=== PATIENT | female | born 1990 | race African-American/Black ===

== ENCOUNTER 2016-05-30 07:25 | Day surgery (SDC) | payer MEDICARE ==
[~2016-05-30] VITALS: Ht 170.2 cm; Wt 62.7 kg
[~2016-05-30 07:25] MED LIST: ATARAX 25 MG TA25 MG PO; COREG25 MG PO; COUMADIN5 MG PO; COZAAR100 MG PO; GENTAMICIN PREM80 M1 IV; HYDROCODONE-APA1 TAB PO; KENALOG 0.025 %15 GM TP; LONITEN2.5 MG PO; MEGACE40 MG PO; NORCO 5/325 TAB1 TA1 PO; NORVASC10 MG PO; ORAPRED ODT10 MG/TAB PO; PHOSLO667 MG PO; PLAQUENIL200 MG PO; PROTONIX40 MG PO; SENSIPAR60 MG PO; VANCOMYCIN 1 GM/1 G1 IV; XANAX0.25 MG PO
[2016-05-30 07:59] LABS: BASOPHILS 0.3 % (0.0-2.0); EOSINOPHILS 25.5 % (0-7); HEMATOCRIT 37.5 % (36.0-48.0); HEMOGLOBIN 11.9 g/dL (12-16); IMMATURE GRANULOCYTES 0.5 % (0-5); MCH 32.6 pg (26.0-34.0); MCHC 31.7 g/dL (31.0-37.0); MCV 102.7 fL (80.0-100.0); MEAN PLATELET VOLUME 10.1 fL (7.4-10.4); MONOCYTES 10.2 % (2-11); NEUTROPHILS 45.5 % (40-80); PLATELET COUNT 133 10x3/uL (130-400); RBC 3.65 10x6/uL (4.00-5.40); RDW 15.8 % (11.5-14.5)
[2016-05-30 08:10] LABS: INR 1.21 (0.85-1.17); PROTIME 15.2 SECONDS (11.6-15.0)
[2016-05-30] MEDS ORDERED: LONITEN10 MG PO (08:10)
[2016-05-30 08:11] LABS: ANION GAP 13.2 mmol/L (8-16); CALCIUM 9.6 mg/dL (8.5-10.1); CARBON DIOXIDE 29.9 mmol/L (21.0-32.0); CREATININE - SERUM 7.4 mg/dL (0.6-1.3); POTASSIUM - SERUM 4.1 mmol/L (3.5-5.1)
[2016-05-30] MEDS ORDERED: LONITEN2.5 MG PO (08:11)
[2016-05-30] MEDS ORDERED: DILT-XR240 MG PO (08:13)
[2016-05-30 08:17] VITALS: BP 125/75; Ht 170.2 cm; Wt 62.7 kg
[2016-05-30 08:21] LABS: HCG URINE NEGATIVE (NEGATIVE)
[2016-05-30] MEDS ORDERED: MUPIROCIN22 GM TOPICAL (11:47)
--- NOTE | 2016-05-30 13:30 | NUR ---
IV VANCOMYCIN HAS COMPLETED. IV REMOVED INTACT. DISCHARGE INSTRUCTIONS AND RX GIVEN, VOICED UNDERSTANDING.
--- NOTE | 2016-05-30 14:00 | NUR ---
IS NOW DRESSED AND READY FOR WHEELCHAIR. DISCHARGED HOME VIA .
--- NOTE | 2016-06-03 09:48 | OP ---
PATIENT NAME: IRINEO MOORE MEDICAL RECORD: [id number] :88 LOCATION:D.JALIL ADMISSION DATE: SURGEON: ARNOLDO SHARMA MD DATE OF OPERATION: 05/30/2016 REFERRING PHYSICIAN: Dr. Oh Gutierrez of [place]. ATTENDING PHYSICIAN IN THE HOSPITAL TODAY: Dr. Kimball. PREOPERATIVE DIAGNOSES: Dialysis access complication and with high pressures and drawing clots and post-decannulation bleeding from left arm hybrid HeRO AV fistula and right axillary lymphadenitis or abscess OPERATION PERFORMED: Left arm fistulogram from the arterial anastomosis to the right atrium and additionally incision and drainage of right axillary abscess. SURGEON: Arnoldo Sharma MD ANESTHESIA: General with LMA per ALCIDES and Dr. Montiel. PREOPERATIVE NOTE: Ms. 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 She has been dialyzing for some time with a HeRO hybrid type access on the left. The HeRO was put in to preserve the well established left brachiocephalic arteriovenous fistula and has worked fine, but recently she has been having trouble with clots, elevated pressure is difficult to access, etc. 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 She is to have a fistulogram today and possible intervention. This morning, she indicated that for the past 2 days, she has had a tender lump in the right axilla, which on physical examination is not warm, it is about a centimeter and a half perhaps in diameter attached to the skin and is most likely an axillary abscess or lymphadenitis, to be incised and drained today while she is under anesthesia. Under general anesthesia administered with an LMA, the patient was prepped and draped in sterile manner. I accessed her fistula near the arterial anastomosis. I used micropuncture technique and then performed the contrast injections through the micropuncture 4-Upper Sorbian catheter. The contrast injection with runoff occlusion demonstrated the arterial anastomosis to be wide open. There does appear to be some probably chronic clot in the vein near the arterial anastomosis, but it is not causing any problem with flow. Additional digital subtraction runs were then used to image the entire fistula. There is a rather severe aneurysmal deterioration of the cephalic vein with areas of calcification and then there was good runoff from the junction with the HeRO outflow device to the right atrium. It was my opinion that the really probable serviceable lifetime of this cephalic vein fistula is at an end and the vein segment needs to be replaced within Acuseal graft to her HeRO outflow, using the old arterial anastomosis for the inflow source. The 4-Upper Sorbian catheter was removed and 4-0 Prolene [id number] suture placed to provide hemostasis and after a period of direct pressure, the puncture site was dressed with Avitene Ultrafoam, Tegaderm, and Cavilon skin prep. I turned my attention into the right axilla. I made a 1 cm incision into the indurated area and I was actually only able to OPERATIVE REPORT [id number] IRINEO MOORE drain a small amount of purulence and sebaceous material. I did culture the wound for aerobes and anaerobes and then held pressure for a period of time, there being persistent venous bleeding, I believe due to her upper torso venous hypertension. I packed the wound with iodoform gauze and continue to hold pressure and then infiltrated the tissues surrounding the wound with 0.25% Marcaine with epinephrine. Bleeding continued, although it did improve after the epinephrine injection. I removed the iodoform gauze then packed the wound with Fibrillar and then eventually placed 2 simple 3-0 Vicryl sutures to close the wound over the Fibrillar and provide additional pressure and this did achieve hemostasis. The wound was subsequently dressed with sterile gauze and Medipore tape. During the last portion of the operation, the patient's LMA had become malpositioned or displaced and her oxygen saturation dropped and she became hypotensive, which when this was recognized and her LMA repositioned and she was ventilated with 100% oxygen and her anesthetic discontinued. Her blood pressure did return to normal levels as did her O2 saturation. The patient was successfully awakened and taken to the recovery room. I will order a chest x-ray will be done postop because of this episode of O2 desaturation. If the patient is stable and otherwise feels well in the outpatient department, I will plan to let her go home today and return to see me probably in the next week or two, hopefully when she will be scheduled for a major graft revision. I think that she should be kept on antibiotics for the right axillary abscess for about a week. I have given her 500 mg of vancomycin IV today here and we will ask the dialysis continue her on vancomycin to be administered at her next 3 dialysis sessions. We will schedule home health to see her starting this coming Thursday, both the sutures and the wound packing can be removed and the wound rinsed and irrigated with hydrogen peroxide and then a sterile dry dressing applied over it, that should be done then daily, with also then application of mupirocin ointment over the wound under the dry dressing. Home health should be able to teach the patient to do this for herself and I would not expect her to require any home health visits for much longer than a couple of weeks. Blood loss was probably 25 cc or less, none was replaced. All sponges, instruments and needles were accounted for. No drain was used and other than the cultures, no surgical specimen was submitted for histopathology. TRANSINT:[id number] Voice Confirmation ID: [id number] DOCUMENT ID: [id number] ARNOLDO SHARMA MD at 0948 CC: CJ KIMBALL MD and OH GUTIERREZ III MD [id number] DICTATION DATE: 05/30/16 1158 [facility] U[facility]ERS: 05/30/16 1255 [facility] 05/30/16 [id number] [place] [address]
== END 2016-05-30 14:00 | disposition home or self-care (01) ==
LOC: D.OPS 07:25
PROVIDERS: Internal Medicine Nephrology
DX: T82.590A Other mechanical complication of surgically created arteriovenous fistula, initial encounter (principal); I12.0 Hypertensive chronic kidney disease with stage 5 chronic kidney disease or end stage renal disease; N18.6 End stage renal disease; Z99.2 Dependence on renal dialysis; I95.81 Postprocedural hypotension; I86.8 Varicose veins of other specified sites; L02.411 Cutaneous abscess of right axilla; M32.9 Systemic lupus erythematosus, unspecified

== ENCOUNTER 2016-09-30 07:57 | Inpatient (IN) | payer MEDICARE ==
[~2016-09-30] VITALS: Ht 170.2 cm; Wt 64.8 kg
[~2016-09-30 07:57] MED LIST changes: +DILT-XR240 MG PO; +LONITEN10 MG PO; +MUPIROCIN22 GM TOPICAL
[2016-09-30 08:54] LABS: HEMATOCRIT 37.5 % (36.0-48.0); MCH 32.5 pg (26.0-34.0); MCV 101.6 fL (80.0-100.0); PLATELET COUNT 128 10x3/uL (130-400); RBC 3.69 10x6/uL (4.00-5.40); WBC 2.6 10x3/uL (4.8-10.8)
[2016-09-30 09:02] LABS: ANION GAP 10.7 mmol/L (8-16); CALCIUM 8.6 mg/dL (8.5-10.1); CARBON DIOXIDE 31.3 mmol/L (21.0-32.0); CREATININE - SERUM 6.7 mg/dL (0.6-1.3)
[2016-09-30 09:03] LABS: APTT 33.8 SECONDS (22.8-39.4); INR 1.22 (0.85-1.17); PROTIME 15.3 SECONDS (11.6-15.0)
[2016-09-30] MEDS ORDERED: DIPROLENE 0.05%60 M1 TOPICAL (09:05)
[2016-09-30 09:13] LABS: HCG SERUM NEGATIVE (NEGATIVE)
[2016-09-30 09:37] VITALS: BMI 21.4
[2016-09-30 09:41] LABS: BASOPHILS 1 % (0-2); EOSINOPHILS 8 % (0-7); LYMPHOCYTES 26 % (15-50); MONOCYTES 21 % (2-11); NEUTROPHILS 44 % (40-80); PLATELET ESTIMATE NORMAL
--- NOTE | 2016-09-30 10:16 | NUR ---
1015 [facility] APN/NEPHROLOGY BEEPED TO REVIEW PREOP LAB VALUES. Carolyn GARNER R.N.
--- NOTE | 2016-09-30 10:24 | NUR ---
1024 [facility] APN [facility]PHROLOG[facility] CALLED. ABNORMAL CHEST XRAY REPORT, WBC-2.6, PLATELET 128, LYMPHOCYE ABS# 0.63, NEUTROPHIL ABS# 1.22 GIVEN IN ADDITION TO HGB, K+,PLATELETS, PTT, & INR LAB RESULTS. ORDER RECEIVED FOR LAB VALUES CLEAR PER NEPHROLOGY FOR SURGERY TODAY. STATES WILL NOTIFY DIALYSIS @ [facility] R/T ABNORMAL CXR, WBC, & PLATELET. Carolyn GARNER R.N.
[2016-09-30 17:21] VITALS: BP 116/72
--- NOTE | 2016-09-30 17:23 | NUR ---
ARRIVE TO ROOM VIA BED FROM OR. LT ARM HEROGRAFT DRESSING CLEAN DRY INTACT. FREE FROM BLEEDING. BRUIT AND THRILL PRESENT. FAMILY AT BEDSIDE. BP-116/72, T-97.7, O2-94% 3L NC. LT ARM ELEVATED ON PILLOW. SEDATED. AROUSES EASILY TO VOICE. CONTINUE PLAN OF CARE. BED LOCKED AND LOW. CALL LIGHT IN REACH. TWO SIDERAILS UP. SCDs ON.
[2016-09-30 17:37] VITALS: BP 116/72; Ht 170.2 cm; Wt 64.8 kg
--- NOTE | 2016-09-30 20:44 | NUR ---
PT SITTING ON SIDE OF BED. STATES THAT LEFT ARM IS HURTING BUT IT IS TOLERABLE. TOLD PT TO CALL IF PAIN GETS WORSE. PT DENIES ANY OTHER NEEDS. BEDLOW AND CALLLIGHT WITHIN REACH. WILL CONTINUE TO MONITOR
[2016-09-30 21:02] VITALS: BP 122/81
--- NOTE | 2016-09-30 21:51 | NUR ---
PT C/O 11/16 PAIN IN LEFT SHOULDER FROM PROCEDURE TODAY. ULTRAM PO AND BUPRENORPHINE IM GIVEN. ICE PACK PROVIDED. . WILL CONTINUE TO MONITOR PAIN. PT DENIES ANY OTHER NEEDS. NO S/S OF DISTRESS.
[2016-10-01 01:00] VITALS: BP 124/78
[2016-10-01 04:21] VITALS: BP 123/76
--- NOTE | 2016-10-01 06:30 | NUR ---
PT RESTING IN BED. RESPIRATIONS EVEN AND UNLABORED. NO COMPLAINTS AT THIS TIME.NO S/S OF DISTRESS. WILL CONTINUE TO MONITOR
[2016-10-01 08:00] VITALS: BP 130/83
--- NOTE | 2016-10-01 08:14 | NUR ---
AM ROUNDS - PT IS AWAKE IN BED. NO YELLOW BAND ON. PT IS ON 3L O2 VIA NC. IV TO RIGHT FA, SL. PT IS A LEFT ARM RESERVE. BED AT LOWEST POSITION, CALL BERTRAND IN USE/REACH, SIDE RAILS UP X2. WILL CONTINUE TO MONITOR
[2016-10-01 12:43] VITALS: BP 138/83
[2016-10-01 16:00] VITALS: BP 109/70
--- NOTE | 2016-10-01 19:21 | NUR ---
RECEIVED REPORT, WILL ASSUME CARE OF PT, PT WATCHING TV, DENIES ANY NEEDS AT THIS TIME, BED IS LOW, SRX2, CALL LIGHT IN REACH, WILL CONTINUE PLAN OF CARE
[2016-10-01 20:00] VITALS: BP 148/87
--- NOTE | 2016-10-02 02:12 | NUR ---
ASSESSMENT COMPLETE, SEE FLOW SHEET, PT IS SLEEPING, BED IS LOW, SRX2, CALL LIGHT IN REACH, WILL CONTINUE PLAN OF CARE
[2016-10-02 04:20] VITALS: BP 126/80
[2016-10-02 06:04] LABS: BASOPHILS 0 % (0-2); EOSINOPHILS 0.8 % (0-7); HEMOGLOBIN 10.9 g/dL (12-16); IMMATURE GRANULOCYTES 0.8 % (0-5); LYMPHOCYTES 25.4 % (15-50); MCH 33.4 pg (26.0-34.0); MCHC 34.1 g/dL (31.0-37.0); MEAN PLATELET VOLUME 10.9 fL (7.4-10.4); MONOCYTES 10.7 % (2-11); NEUTROPHILS 62.3 % (40-80); RBC 3.26 10x6/uL (4.00-5.40); RDW 14.6 % (11.5-14.5)
[2016-10-02 06:21] LABS: MCV 98.2 fL (80.0-100.0); PLATELET COUNT 168 10x3/uL (130-400); WBC 4.8 10x3/uL (4.8-10.8)
[2016-10-02 06:22] LABS: ANION GAP 16.5 mmol/L (8-16); CARBON DIOXIDE 24.7 mmol/L (21.0-32.0)
[2016-10-02 06:30] LABS: CREATININE - SERUM 11.1 mg/dL (0.6-1.3); POTASSIUM - SERUM 5.2 mmol/L (3.5-5.1)
--- NOTE | 2016-10-02 07:45 | NUR ---
PRN NORCO GIVEN FOR LEFT SHOULDER PAIN PER PATIENT REQUEST
[2016-10-02 08:00] VITALS: BP 129/82
--- NOTE | 2016-10-02 08:00 | NUR ---
PATIENT ALERT/OREINT X4. SCD'S ON AT THIS TIME. CALL LIGHT WITHIN REACH. VOICES NO NEEDS AT THIS TIME. RESERVED LEFT ARM DUE TO AV FISTULA
--- NOTE | 2016-10-02 09:42 | NUR ---
PATIENT TAKEN DOWN TO DIALYSIS CLINIC FOR TREATMENT
--- NOTE | 2016-10-02 12:47 | NUR ---
IN DIALYSIS AT PRESENT.
--- NOTE | 2016-10-02 13:47 | NUR ---
PATIENT REMAINS IN DIALYSIS CLINIC. DR. RIVERA HAS WRITTEN DISCHARGE INSTRUCTIONS FOR THIS PATIENT.
--- NOTE | 2016-10-02 14:33 | NUR ---
PATIENT BACK FROM DIALYSIS CLINIC. REPORT CALLED TO THIS NURSE. B/P HAS BEEN RUNNING LOW. B/P 93/50. WILL CONTINUE TO MONITOR
--- NOTE | 2016-10-02 15:24 | NUR ---
B/P 109/47
[2016-10-02 15:38] VITALS: BP 109/47
--- NOTE | 2016-10-02 16:48 | NUR ---
Patient Name: IRINEO MALIN Admission Status: Elective Accout number: [id number] Admission Date: 09-30-2016 : 1990 Admission Diagnosis:OTH COMPLICATION OF VASCULAR PROSTH MIR/MIRIAM, [place] Attending: LUPE Current LOS: 2 Anticipated DC Date: 10-02-2016 Planned Disposition: Home Primary Insurance: MEDICARE A & B Discharge Planning Comments: * Is the patient Alert and Oriented? Yes 0 * How many steps to enter\exit or inside your home? 3 0 * PCP DR. CORREA, [facility] * Pharmacy [facility] 0 * Preadmission Environment Home with Family 0 * ADLs Independent 0 * Equipment None 0 * Other Equipment NO MEDICAL EQUIPMENT PROVIDER PREFERENCE 0 * List name and contact numbers for known caregivers / representatives who currently or will assist patient after discharge: MARISOL DEWEY, MOTHER, 0 * Community resources currently utilized Other 0 * Please name any agencies selected above. OUTPATIENT DIALYSIS, [facility], T/T/, 0800; PT DRIVES SELF 0 * Additional services required to return to the preadmission environment? No 0 * Can the patient safely return to the preadmission environment? Yes 0 * Has this patient been hospitalized within the prior 30 days at any hospital? No 0 CM MET WITH PT IN ROOM TO DISCUSS DISCHARGE PLANNING AND NEEDS. PT REPORTS LIVING AT HOME INDEPENDENTLY WITH HER PARENTS. PT HAS NO MEDICAL EQUIPMENT AND NO OUTSIDE SERVICES ASSISTING IN THE HOME. PT HAS OUTPATIENT DIALYSIS AND DRIVES HERSELF TO AND FROM TREATMENTS. CM DISCUSSED AVAILABILITY OF HOME HEALTH, REHAB SERVICES AND MEDICAL EQUIPMENT. PT DENIES DISCHARGE NEEDS, REPORTS HER FATHER IS ON THE WAY AND WILL PICK HER UP FOR DISCHARGE HOME TODAY. IMPORTANT MESSAGE FROM MEDICARE PROVIDED AND EXPLAINED. Parole Director: Manuel Urena
--- NOTE | 2016-10-02 17:27 | NUR ---
B/P 106/62. PATIENT IS WAITING FOR HER FATHER TO PICK HER UP. DISCHARGE PAPER WORK IS DONE.
--- NOTE | 2016-10-02 17:43 | OP ---
PATIENT NAME: SUSU MOORE MEDICAL RECORD: [id number] :[birth year] LOCATION:D.M2 D.2138 ADMISSION DATE:09/30/16 SURGEON: ARNOLDO SHARMA MD DATE OF OPERATION: 09/30/2016 PATIENT TYPE: Inpatient. PREOPERATIVE DIAGNOSIS: Aneurysmal and malfunctioning left arm brachiocephalic AV fistula with HeRO outflow to the right atrium. POSTOPERATIVE DIAGNOSIS: Aneurysmal and malfunctioning left arm brachiocephalic AV fistula with HeRO outflow to the right atrium. OPERATION PERFORMED: Fistulogram followed by open revision of AV fistula with implantation of a new 6 mm Acuseal graft with a new direct anastomosis to the brachial artery above the antecubital space and excision of portion of the aneurysmal AV fistula from the antecubital space. SURGEON: Arnoldo Sharma M.D. REFERRING PHYSICIAN: Dr. Gutierrez. PREOPERATIVE NOTE: Susu Moore is a 26-year-old female with lupus and lupus related kidney disease and end-stage renal disease. She is on chronic hemodialysis. She has had multiple catheters and multiple dialysis access failures and has multiple central vein stenoses. She has been dialyzing successfully now for a couple of years with a left upper extremity HeRO graft. Actually it is a hybrid, I converted her left brachiocephalic AV fistula to the HeRO outflow. Most recently about 2-3 months ago, I performed an intervention for thrombosis and found that her fistula was severely calcific and contained extensive debris and had areas of stenosis and it was my recommendation at that time that she be scheduled for an elective creation of a new fistula or conversion to an AV graft in the left arm. She did not return for followup after that case, but returns now referred from her doctors in [facility] with a poor dialysis efficiency and prolonged post-cannulation bleeding. I have talked with her preoperatively and she understands and is in agreement with my recommendation that she have a new AV graft implanted. I told her I will first do a fistulogram to see if there is any problem with the outflow. PROCEDURE: With patient under general anesthesia per INSURANCE LEGAL ASSISTANT in supine position, the left arm and chest and neck were prepped and draped in a sterile manner. I made an incision in the infraclavicular space and the deltopectoral groove and I exposed the HeRO outflow device and the junction with the PTFE and the anastomosis between the PTFE segment and the cephalic vein. These structures were freed up completely. I then accessed her fistula near the antecubital space using micropuncture technique and performed a fistulogram and demonstrated severely calcific vein in the entire arm. There was no evidence of obstructed venous outflow. The Angiocath was removed and a 4-0 Prolene suture used for hemostasis at puncture site. I then made a transverse incision across the antecubital space and exposed the cephalic vein fistula at that level. The vein was highly calcific and very dilated and I dissected it fairly extensively down to the brachial artery anastomosis. Just distal to that, I closed the vein with a vascular stapling device and resected some of the structure, which was subsequently sent to pathology. It was quite remarkable in the extent of calcification and the intraluminal debris, which was almost identical or OPERATIVE REPORT [id number] SUSU MOORE ETOY certainly very similar in appearance to a severely atherosclerotic diseased artery. The patient was heparinized with 5000 units of heparin, which after 1 hour was supplemented with an additional 2000 units of heparin. I chose a 6-mm diameter Acuseal graft and made a single counter incision about mid humeral level and lateral to the cephalic vein fistula. The graft was placed in a subcutaneous tunnel, very close to the skin in the areas it will be accessed. I exposed the brachial artery above the antecubital space and dissected the artery and controlled it with Silastic loops and performed an end-to-side graft to artery anastomosis with running 6-0 Prolene. That anastomosis was sealed with BioGlue and after a 2 minute observation, it was noted to be hemostatic with release of the occluding clamps and loops. The graft and arterial anastomosis were flushed with heparinized saline and the graft clamped. The graft pulled through the tunnels up into the deltopectoral groove, was shortened and then attached to a HeRO revision clamp, which is manufactured specifically for this use. I clamped the HeRO outflow device as far medially as possible and then divided it and then joined the new PTFE graft with the revision connector to the HeRO outflow and released the occluding clamps and excellent flow was immediately established. I then fully mobilized and resected the old HeRO outflow to graft to vein segment and ligated the vein there with 0 silk. The vein had been ligated distally in the arm also above the antecubital space with 0 silk. The wounds were irrigated with Ancef and gentamicin solution. Hemostasis obtained with the electrocautery and the patient given 20 mg of protamine in an effort at least partially reverse her heparinization. The wounds were infiltrated and irrigated with 0.25% Marcaine with epinephrine and then closed in layers with interrupted inverted 3-0 Vicryl and running intracuticular 4-0 Monocryl. The incisions were sealed with glue and dressed with Maxorb Ag, Tegaderm and Cavilon skin prep. She was then awakened and taken to the recovery room in stable condition. Blood loss was 100 cc or less, none was replaced. All sponges, instruments and needles were accounted for. No drain was used and the surgical specimen consisted of resected arterialized atherosclerotic looking fistula. PLAN: She needs to remain in the hospital, certainly at least overnight tonight at a minimum. She will need to have dialysis here tomorrow and demonstrate that her accesses is going to be reliably accessible and hopefully that she gets better, more efficient dialysis from it. We need to make sure that her pain control with oral medications is adequate and that she is able to return to nearly normal activities upon discharge. She will continue all of the same medications. She will be scheduled to return to see me in my office probably in about 2 weeks. The bandages on her arm on the 3 incisions can be left intact until she comes to see me unless there is bleeding or some reason why they really need to be changed sooner. She should be able to shower and wash over these waterproof plastic dressings as desired. TRANSINT:[id number] Voice Confirmation ID: [id number] DOCUMENT ID: [id number] ARNOLDO SHARMA MD at 1743 CC: CJ KIMBALL MD and OH GUTIERREZ III MD [id number] DICTATION DATE: 09/30/16 165 STERILE PREPARATION TECHNICIAN: [id number]/30/[id number] ADM IN [address] [place] [address]
--- NOTE | 2016-10-02 19:56 | NUR ---
SIGNED DISCHARGE FORMS. C/O LEFT ARM PAIN LEVEL 10 ON NUMBER SCALE, DESCRIBED ACHING/THROBBING. ADMIN NORCO 7.5/325MG PO. REMOVED RT FA IV. FLEECER ESCORTED VIA WC WITH FAMILY TO LOBBY/VEHICLE.
== END 2016-10-02 20:00 | disposition home or self-care (01) | DRG 252 ==
LOC: D.OPS 07:57 → D.M2 17:06 → D.OPS 17:07 → D.M2 10-02 20:00
PROVIDERS: Internal Medicine; Surgery; ADMIT Internal Medicine Nephrology
PROC: B51W1ZZ Fluoroscopy of Dialysis Shunt/Fistula using Low Osmolar Contrast (ICD-10-PCS; principal; 2016-09-30 09:30)
PROC: 05WY0JZ Revision of Synthetic Substitute in Upper Vein, Open Approach (ICD-10-PCS; 2016-09-30 09:30)
PROC: 5A1D60Z (ICD-10-PCS; 2016-10-01)
DX: T82.898A Other specified complication of vascular prosthetic devices, implants and grafts, initial encounter (principal); N18.6 End stage renal disease; I12.0 Hypertensive chronic kidney disease with stage 5 chronic kidney disease or end stage renal disease; Y83.2 Surgical operation with anastomosis, bypass or graft as the cause of abnormal reaction of the patient, or of later complication, without mention of misadventure at the time of the procedure; Z99.2 Dependence on renal dialysis; M32.9 Systemic lupus erythematosus, unspecified